=== PATIENT | female | born 2000 | race Two or more races ===

== ENCOUNTER → 2021-04-29 | Outpatient (REF) ==
[2021-05-01 06:09] LABS: HERPES ZOSTER, VARICELLA IgG 821 index (Immune >165); RUBEOLA IgG ANTIBODY >300.0 AU/mL (Immune >16.4)
== END ==
LOC: M LAB 15:53
PROVIDERS: ATTEND Nurse Practitioner Adult Health
DX: Z02.1 Encounter for pre-employment examination (principal)

== ENCOUNTER → 2024-04-24 | Outpatient (REF) ==
[~2024-04-24] MED LIST: ALBU2.5V10 NEB; ALBU8.5H INH; CETI-36 PO; MONT-5 PO; PRED20TA PO; SYMB80INH INH; VENTAER INH; ZOLO100T PO
== END ==
LOC: M EMP 10:00
PROVIDERS: ATTEND Family Medicine
DX: Z11.52 Encounter for screening for COVID-19 (principal)

== ENCOUNTER → 2024-07-17 | Outpatient (REF) | LOC: M EMP 07:29 | PROVIDERS: ATTEND Family Medicine | DX: Z20.822 Contact with and (suspected) exposure to COVID-19 (principal) ==

== ENCOUNTER → 2024-10-09 | Outpatient (REF) | LOC: M EMP 08:29 | PROVIDERS: ATTEND Family Medicine | DX: Z11.52 Encounter for screening for COVID-19 (principal) ==